=== PATIENT | female | born 1935 | race Caucasian/White ===

== ENCOUNTER 2018-06-27 10:05 | Outpatient (CLI) | payer MEDICARE | END 2018-06-27 10:06 | disposition home or self-care (01) | LOC: EMS 10:05 | PROVIDERS: ATTEND Surgery | DX: R41.82 Altered mental status, unspecified (principal); R32 Unspecified urinary incontinence | CPT/HCPCS: A0425; A0429 ==

== ENCOUNTER 2018-06-27 10:39 | Inpatient (IN) | payer MEDICARE ==
[2018-06-27 11:18] LABS: BASOPHILS % (AUTO) 0.2 %; HGB - HEMOGLOBIN 11.9 g/dL (12.0-16.0); LYMPHOCYTES % (AUTO) 10.2 %; MEAN CORPUSCULAR HEMOGLOBIN 32.5 pg (27.0-31.0); MEAN CORPUSCULAR HGB CONC 34.2 g/dL (32.0-36.0); MEAN CORPUSCULAR VOLUME 95.1 fL (81.0-99.0); MEAN PLATELET VOLUME 10.4 fL (7.9-10.8); MONOCYTES % (AUTO) 2.9 %; NEUTROPHILS % (AUTO) 86.7 %; PLT - PLATELET COUNT 116 10^3/uL (130-450); RED BLOOD COUNT 3.66 10^6/uL (4.20-5.40); RED CELL DISTRIBUTION WIDTH 14.7 % (12.0-15.0); WHITE BLOOD COUNT 23.7 x10^3/uL (4.8-10.8)
[2018-06-27 11:20] LABS: GLUCOSE, URINE (UA) NEGATIVE (NEGATIVE); KETONES,URINE (UA) TRACE mg/dL (NEGATIVE); LEUKOCYTE ESTERASE, URINE LARGE (NEGATIVE); NITRITE,URINE NEGATIVE (NEGATIVE); OCCULT BLOOD,URINE LARGE (NEGATIVE); PH,URINE 5.5 PH (5.0-7.5); PROTEIN,URINE >=300 mg/dL (NEGATIVE); UROBILINOGEN,URINE 0.2 (NORMAL) E.U./dL (NORMAL)
--- NOTE | 2018-06-27 11:25 | XRAY Report ---
Reason: ams Procedure Date: 06/27/2018 Accession Number: [id number] / [id number] Procedure: XR - Chest 1 View X-Ray CPT Code: 47317 FULL RESULT: EXAM: CHEST RADIOGRAPHY EXAM DATE: 06/27/2018 11:21 AM. CLINICAL HISTORY: AMS. COMPARISON: None. TECHNIQUE: 1 view. FINDINGS: Lungs/Pleura: Increased interstitial pulmonary markings and hazy opacity at the right lung base most suggestive of mild interstitial pulmonary edema possibly with trace pleural effusion which is not directly visualized. No lobar consolidation and no pneumothorax. Mediastinum: Cardiomegaly and calcified aortic arch. Other: None. IMPRESSION: Cardiomegaly with possibly mild interstitial edema. No pneumonia. RADIA
[2018-06-27 11:26] LABS: CLARITY,URINE CLOUDY (CLEAR)
[2018-06-27 11:27] LABS: BACTERIA,URINE Moderate /HPF (None Seen); BILIRUBIN,URINE NEGATIVE (NEGATIVE); ICTOTEST,URINE NEGATIVE; SQUAMOUS EPITHELIAL CELL,UR RARE Squamous (<= Few)
--- NOTE | 2018-06-27 11:29 | ED Physician Documentation ---
PD HPI ALTERED MENTAL STATUS - Stated complaint Stated Complaint: AMS - Chief complaint Chief Complaint: Neuro - History obtained from History obtained from: Patient, Family, EMS - History of Present Illness Timing - onset: How many days ago (2-3) Timing - duration: Days (She has had 2-3 days of decreasing mentation and interaction, not wanting to eat or drink, and seemed low-grade fever of about 99. She had an episode of vomiting a couple of days ago. No diarrhea. She has not had any cough. She had worsening mentation today and was brought in by EMS.) Timing - details: Gradual onset, Still present Quality / character: Less responsive, Confused. No: Agitated, Hallucinating Associated symptoms: Fever, General weakness. No: Headache, Dyspnea, Cough, Focal weakness Contributing factors: Anticoagulated. No: New medication, Recent illness, Recent injury Basline status: Alert and oriented X 3, Walker Similar symptoms before: Has not had sx before Recently seen: Not recently seen Review of Systems Constitutional: reports: Fever Nose: denies: Rhinorrhea / runny nose, Congestion Throat: denies: Sore throat Cardiac: denies: Chest pain / pressure, Palpitations, Pedal edema, Calf pain Respiratory: reports: Dyspnea. denies: Cough, Wheezing GI: reports: Nausea, Vomiting. denies: Abdominal Pain, Constipation, Diarrhea : reports: Incontinent Skin: denies: Rash Neurologic: reports: Generalized weakness. denies: Focal weakness, Numbness Psychiatric: denies: Depressed Endocrine: denies: Weight loss Immunocompromised: denies: Immunocompromised PD PAST MEDICAL HISTORY - Past Medical History Cardiovascular: Hypertension, High cholesterol, Atrial fibrillation - Past Surgical History Past Surgical History: Yes Ortho: Hip replacement - Present Medications Home Medications: Ambulatory Orders Medication Instructions Recorded Confirmed Atorvastatin Calcium 40 mg PO DAILY 06/27/18 06/27/18 Diltiazem HCl [Diltiazem ER] 180 mg PO DAILY 06/27/18 06/27/18 Losartan [Cozaar] 50 mg PO DAILY 06/27/18 06/27/18 Metoprolol Tartrate 100 mg PO BID 06/27/18 06/27/18 Triamterene/Hydrochlorothiazid 0.5 tab PO DAILY 06/27/18 06/27/18 [Triamterene-Hctz 75-50 mg Tab] Warfarin [Coumadin] 2 mg PO DAILY 06/27/18 06/27/18 - Allergies Allergies/Adverse Reactions: Allergies Allergy/AdvReac Type Severity Reaction Status Date / Time No Known Drug Allergies Allergy Verified 06/27/18 10:48 - Social History Does the pt smoke?: No Smoking Status: Never smoker Does the pt drink ETOH?: Yes Does the pt have substance abuse?: No - Immunizations Immunizations are current?: Yes PD ED PE NORMAL - Vitals Vital signs reviewed: Yes - General General: Alert and oriented X 3, No acute distress, Well developed/nourished - HEENT HEENT: Pharynx benign - Neck Neck: Supple, no meningeal sign, No adenopathy - Cardiac Cardiac: No: RRR (irregular and slightly tachy. ) - Respiratory Respiratory: Clear bilaterally - Abdomen Abdomen: Normal bowel sounds, Soft, Non tender, Non distended - Back Back: No CVA TTP - Derm Derm: Normal color, Warm and dry - Extremities Extremities: No deformity, No tenderness to palpate, Normal ROM s pain, No edema - Neuro Neuro: No motor deficit, No sensory deficit. No: Alert and oriented X 3 (diminished mentation but does answer simply to questions. ) Eye Opening: To Voice Motor: Obeys Commands Verbal: Confused GCS Score: 13 Results - Vitals Vitals: Vital Signs - 24 hr 06/27/18 06/27/18 06/27/18 10:46 11:18 12:09 Temperature 36.2 C L Heart Rate 105 H 105 H 108 H Respiratory 30 H 27 H 20 Rate Blood Pressure 130/118 H 96/48 L 87/65 L O2 Saturation 99 99 96 06/27/18 06/27/18 06/27/18 12:53 12:58 13:00 Temperature Heart Rate 126 H 109 H Respiratory 20 20 Rate Blood Pressure 104/54 L O2 Saturation 96 96 06/27/18 13:43 Temperature 36.6 C Heart Rate 114 H Respiratory 22 Rate Blood Pressure 144/109 H O2 Saturation 96 Oxygen O2 Source Room air - Labs Labs: Laboratory Tests 06/27/18 06/27/18 06/27/18 10:00 10:58 11:10 WBC 23.7 H RBC 3.66 L Hgb 11.9 L Hct 34.8 L MCV 95.1 MCH 32.5 H MCHC 34.2 RDW 14.7 Plt Count 116 L MPV 10.4 Neut # (Auto) Not Reportable Lymph # (Auto) Not Reportable [place] # (Auto) Not Reportable Eos # (Auto) Not Reportable Baso # (Auto) Not Reportable Absolute Nucleated RBC Not Reportable Total Counted 100 Band Neuts % (Manual) 8 Abnorm Lymph % (Manual) 0 Metamyelocytes % 2 H Nucleated RBC % Not Reportable Neutrophils # (Manual) 18.7 H Lymphocytes # (Manual) 2.8 Monocytes # (Manual) 1.4 H Eosinophils # (Manual) 0.0 Basophils # (Manual) 0.2 H Differential Comment MANUAL DIFFERENTIAL Manual Slide Review Indicated Platelet Estimate DECREASED (<130,000) Platelet Morphology NORMAL APPEARANCE RBC Morph Micro Appear NORMAL APPEARANCE PT 40.2 H INR 3.6 H Sodium Potassium Chloride Carbon Dioxide Anion Gap BUN Creatinine Estimated GFR (MDRD) Glucose Lactic Acid Calcium Magnesium 1.6 L Total Bilirubin AST ALT Alkaline Phosphatase Troponin I Total Protein Albumin Globulin Albumin/Globulin Ratio Lipase Urine Color Urine Clarity Urine pH Ur Specific [place] Urine Protein Urine Glucose (UA) Urine Ketones Urine Occult Blood Urine Nitrite Urine Bilirubin Urine Urobilinogen Ur Leukocyte Esterase Urine RBC Urine WBC Ur Squamous Epith Cells Urine Bacteria Ur Microscopic Review Urine Culture Comments Influenza A (Rapid) Influenza B (Rapid) 06/27/18 06/27/18 06/27/18 11:10 11:10 11:10 WBC RBC Hgb Hct MCV MCH MCHC RDW Plt Count MPV Neut # (Auto) Lymph # (Auto) [place] # (Auto) Eos # (Auto) Baso # (Auto) Absolute Nucleated RBC Total Counted Band Neuts % (Manual) Abnorm Lymph % (Manual) Metamyelocytes % Nucleated RBC % Neutrophils # (Manual) Lymphocytes # (Manual) Monocytes # (Manual) Eosinophils # (Manual) Basophils # (Manual) Differential Comment Manual Slide Review Platelet Estimate Platelet Morphology RBC Morph Micro Appear PT INR Sodium 138 Potassium 4.7 Chloride 105 Carbon Dioxide 19 L Anion Gap 14.0 H BUN 66 H Creatinine 5.0 H Estimated GFR (MDRD) 8 L Glucose 84 Lactic Acid Calcium 8.9 Magnesium Total Bilirubin 1.2 H AST 45 H ALT 15 Alkaline Phosphatase 58 Troponin I 0.06 Total Protein 7.3 Albumin 3.2 Globulin 4.1 Albumin/Globulin Ratio 0.8 L Lipase 19 L Urine Color DARK YELLOW Urine Clarity CLOUDY Urine pH 5.5 Ur Specific [place] >=1.030 H Urine Protein >=300 H Urine Glucose (UA) NEGATIVE Urine Ketones TRACE Urine Occult Blood LARGE H Urine Nitrite NEGATIVE Urine Bilirubin NEGATIVE Urine Urobilinogen 0.2 (NORMAL) Ur Leukocyte Esterase LARGE H Urine RBC 6-10 H Urine WBC >25 H Ur Squamous Epith Cells RARE Squamous Urine Bacteria Moderate H Ur Microscopic Review INDICATED Urine Culture Comments INDICATED Influenza A (Rapid) Influenza B (Rapid) 06/27/18 06/27/18 11:50 12:56 WBC RBC Hgb Hct MCV MCH MCHC RDW Plt Count MPV Neut # (Auto) Lymph # (Auto) [place] # (Auto) Eos # (Auto) Baso # (Auto) Absolute Nucleated RBC Total Counted Band Neuts % (Manual) Abnorm Lymph % (Manual) Metamyelocytes % Nucleated RBC % Neutrophils # (Manual) Lymphocytes # (Manual) Monocytes # (Manual) Eosinophils # (Manual) Basophils # (Manual) Differential Comment Manual Slide Review Platelet Estimate Platelet Morphology RBC Morph Micro Appear PT INR Sodium Potassium Chloride Carbon Dioxide Anion Gap BUN Creatinine Estimated GFR (MDRD) Glucose Lactic Acid 4.4 H* Calcium Magnesium Total Bilirubin AST ALT Alkaline Phosphatase Troponin I Total Protein Albumin Globulin Albumin/Globulin Ratio Lipase Urine Color Urine Clarity Urine pH Ur Specific [place] Urine Protein Urine Glucose (UA) Urine Ketones Urine Occult Blood Urine Nitrite Urine Bilirubin Urine Urobilinogen Ur Leukocyte Esterase Urine RBC Urine WBC Ur Squamous Epith Cells Urine Bacteria Ur Microscopic Review Urine Culture Comments Influenza A (Rapid) Negative Influenza B (Rapid) Negative Departure - Departure Disposition: 66 [facility] DC/Xfer Clinical Impression: Acute renal insufficiency Hypotension Qualifiers: Hypotension type: unspecified hypotension type Qualified Code(s): I95.9 - Hypotension, unspecified UTI (urinary tract infection) Qualifiers: Urinary tract infection type: acute pyelonephritis Qualified Code(s): N10 - Acute pyelonephritis Sepsis Qualifiers: Sepsis type: sepsis due to unspecified organism Qualified Code(s): A41.9 - Sepsis, unspecified organism Condition: Stable Record reviewed to determine appropriate education?: Yes
[2018-06-27 11:33] LABS: ALBUMIN 3.2 g/dL (3.2-5.5); ALBUMIN/GLOBULIN RATIO 0.8 (1.0-2.2); BILIRUBIN,TOTAL 1.2 mg/dL (0.2-1.0); CALCIUM 8.9 mg/dL (8.5-10.3); TOTAL PROTEIN 7.3 g/dL (6.7-8.2)
[2018-06-27] MEDS ORDERED: SODIUM CHLORIDE 0.9% 1,000 ML IV ONE ×3 (11:48→13:47)
[2018-06-27] MEDS ORDERED: ONDANSETRON 4 MG/2 ML VIAL IVP STA (11:48)
[2018-06-27] MEDS ORDERED: CEFEPIME 2 GM in SODIUM CHLORIDE 0.9% MINIBAG 100 ML IV STA (11:49)
[2018-06-27] MEDS ORDERED: metroNIDAZOLE 500 MG/100 ML 500 MG/100 ML BAG IV STA (11:49)
[2018-06-27] MEDS ORDERED: VANCOMYCIN INJ 1.25 GM in SODIUM CHLORIDE 0.9% 250 ML IV STA (11:49)
[2018-06-27 11:51] LABS: ABNORMAL LYMPHS % (MANUAL) 0 %; BAND NEUTROPHILS % (MANUAL) 8 %; BASOPHILS # (MANUAL) 0.2 10^3/uL (0-0.1); BASOPHILS % (MANUAL) 1 %; DIFFERENTIAL COMMENT MANUAL DIFFERENTIAL; LYMPHOCYTES # (MANUAL) 2.8 10^3/uL (1.5-3.5); LYMPHOCYTES % (MANUAL) 12 %; METAMYELOCYTES % (MANUAL) 2 %; MONOCYTES # (MANUAL) 1.4 10^3/uL (0.0-1.0); NEUTROPHILS # (MANUAL) 18.7 10^3/uL (1.5-6.6); NEUTROPHILS % (MANUAL) 71 %; PLATELET ESTIMATE, MANUAL DECREASED (<130,000) (NORMAL); PLATELET MORPHOLOGY NORMAL APPEARANCE (NORMAL); RBC MORPHOLOGY (MULTIPLE) NORMAL APPEARANCE (NORMAL)
[2018-06-27 12:06] LABS: INR 3.6 (0.8-1.2); PT - PROTHROMBIN TIME 40.2 secs (9.9-12.6)
--- NOTE | 2018-06-27 12:53 | CT Report ---
Reason: confusion, on coumadin Procedure Date: 06/27/2018 Accession Number: [id number] / [id number] Procedure: CT - Head W/O CPT Code: FULL RESULT: EXAM: CT HEAD EXAM DATE: 06/27/2018 12:08 PM. CLINICAL HISTORY: Confusion, on coumadin. COMPARISON: None. TECHNIQUE: Multiaxial CT images were obtained from the foramen magnum to the vertex. Reformats: Sagittal and coronal. IV contrast: None. In accordance with CT protocol optimization, one or more of the following dose reduction techniques were utilized for this exam: automated exposure control, adjustment of mA and/or KV based on patient size, or use of iterative reconstructive technique. FINDINGS: Parenchyma: No intraparenchymal hemorrhage. No evidence of mass, midline shift. Mccrary-white differentiation is distinct. Extraaxial Spaces: Normal for age. No subdural or epidural collections identified. Ventricles: Normal in size and position. Sinuses and Orbits: Imaged paranasal sinuses, orbits, and mastoids show no significant abnormality. Bones: No evidence of fracture or calvarial defect. Other: None. IMPRESSION: Normal head CT. RADIA
[2018-06-27] MEDS ORDERED: IBUPROFEN 400 MG TABLET PO PRN (13:56)
[2018-06-27] MEDS ORDERED: SODIUM CHLORIDE FLUSH 0.9% 10 ML SYRINGE IVP PRN (13:56)
[2018-06-27] MEDS ORDERED: oxyCODONE 5 MG TABLET PO PRN (13:56)
[2018-06-27] MEDS ORDERED: ONDANSETRON ODT 4 MG TABLET TL PRN (13:56)
[2018-06-27] MEDS ORDERED: ONDANSETRON 4 MG/2 ML VIAL IVP PRN (13:56)
[2018-06-27] MEDS ORDERED: ACETAMINOPHEN 325 MG TABLET PO PRN (13:56)
[2018-06-27] MEDS ORDERED: SODIUM CHLORIDE 0.9% 1,000 ML IV SCH (14:00)
[2018-06-27] MEDS ORDERED: cefTRIAXone 1 GM in SODIUM CHLORIDE 0.9% MINIBAG 100 ML IV SCH (15:00)
[2018-06-27] MEDS ORDERED: SODIUM CHLORIDE 0.9% 500 ML IV ONE (15:49)
[2018-06-27] MEDS ORDERED: GENTAMICIN 80MG VIAL 320 MG in SODIUM CHLORIDE 0.9% 100ML 100 ML IV SCH (16:00)
[2018-06-27] MEDS ORDERED: ACETAMINOPHEN 650 MG SUPP PR PRN (16:09)
--- NOTE | 2018-06-27 16:09 | HISTORY & PHYSICAL EXAMINATION ---
Chief Complaint - Chief Complaint Chief Complaint: AMS History of Present Illness - History of Present Illness HPI Comment/Other: Ms. Herron is a 83-yrs-old female with a past medical history significant for Hypertension, High cholesterol, Atrial fibrillation with Coumadin, who present ER for complain of altered mental status. Pt is alert but confused and could not answer questions. Pt's daughter is at the bedside to help answer questions. She is living with her mother together at [place]. Pt's daughter state pt did not see any medical provider for at least one year. pt suddenly altered her mental status from yesterday morning, before pt is alert and oriented. Pt's daughter state pt went to bathroom yesterday morning then she did not have urination or bowel movement, also pt did not eat or drink since that. Pt's daughter did not know pt had any kidney problem before. Pt's daughter also report pt had 101 fever at home. Lab test reveals pt had elevated WBC 23.7, BUN 66, Creatinine 5, Lactic acid 4.4, PT/INR 40.2/3.6. UA reveals pt has UTI CXR reveals cardiomegaly with possibly mild interstitial edema. CT of head reveals normal head CT. Initially pt is afebrile, tachycardia HR 105, hypotension 96/48, then pt was found to have low degree fever at 38 degree. As pt's presentations, pt was admitted as inpt for further evaluation and treatment. History - Past Medical History Cardiovascular: reports: Hypertension, High cholesterol, Atrial fibrillation - Past Surgical History Ortho: reports: Hip replacement - Family & Social History Family History: Mother: , Cancer, Father: , CAD, CVA/TIA Family History Comment/Other: pt's daughter report pt is living with her mother in [place]. pt had 7 children. Pt had two brothers both had DM2, pt's one sister at 82 yrs from [place], pt's another sister at 82 yrs from [place]. - POLST POLST Status: Full Code Meds/Allgy - Home Medications Home Medications: Ambulatory Orders Medication Instructions Recorded Confirmed Atorvastatin Calcium 40 mg PO DAILY 06/27/18 06/27/18 Diltiazem HCl [Diltiazem ER] 180 mg PO DAILY 06/27/18 06/27/18 Losartan [Cozaar] 50 mg PO DAILY 06/27/18 06/27/18 Metoprolol Tartrate 100 mg PO BID 06/27/18 06/27/18 Triamterene/Hydrochlorothiazid 0.5 tab PO DAILY 06/27/18 06/27/18 [Triamterene-Hctz 75-50 mg Tab] Warfarin [Coumadin] 2 mg PO DAILY 06/27/18 06/27/18 - Allergies Allergies/Adverse Reactions: Allergies Allergy/AdvReac Type Severity Reaction Status Date / Time No Known Drug Allergies Allergy Verified 06/27/18 10:48 Review of Systems - Constitutional Constitutional: reports: Fever, Poor appetite - Eyes Eyes: denies: Pain, Blurred vision, Field loss, Vision loss - Ears, Nose & Throat Ears, Nose & Throat: denies: Ear pain, Nosebleeds, Bleeding gums - Cardiovascular Cariovascular: denies: Irregular heart rate, Palpitations, Chest pain, Edema, Lightheadedness, Syncope, Exertional dyspnea, Decr. exercise tolerance - Respiratory Respiratory: denies: Cough, Sputum production, Wheezing, Snoring, Hemoptysis, Orthopnea, SOB at rest, SOB with exertion - Gastrointestinal Gastrointestinal: denies: Abdominal pain, Abdominal distention, Diarrhea, Rectal bleeding, Black stools, Nausea, Vomiting, Khang blood emesis, Coffee grounds emesis - Genitourinary Genitourinary: denies: Dysuria, Urgency, Hematuria, Incontinence, Flank pain, Nocturia - Musculoskeletal Musculoskeletal: denies: Muscle pain, Muscle aches, Stiffness, Limited range of motion, Muscle weakness - Integumentary Integumentary: denies: Rash, Pruritis, Lesions, Dryness, Lumps - Neurological Neurological: denies: Focal weakness, Dizziness, Numbness, Memory problems, Seizures, Incoordination, Slurred speech - Psychiatric Psychiatric: denies: Suicidal, Delusions, Hallucinations, Homicidal - Endocrine Endocrine: denies: Polyuria, Polydypsia, Polyphagia - Hematologic/Lymphatic Hematologic/Lymphatic: denies: Bruising, Petechiae, Bleeding tendencies Prior Level of Functionality: per pt's daughter report pt is independent at home Exam - Vital Signs Reviewed Vital Signs: Yes Vital Signs: Vital Signs x48h Temp Pulse Pulse Resp BP BP Pulse Ox 06/27/18 15:46 38.9 C H 105 H 24 84/58 L 97 06/27/18 14:37 38.0 C H 107 H 18 103/59 L 97 06/27/18 14:11 109 H 20 106/54 L 96 06/27/18 13:43 36.6 C 114 H 22 144/109 H 96 06/27/18 13:00 109 H 20 96 06/27/18 12:58 104/54 L 06/27/18 12:53 126 H 20 96 06/27/18 12:09 108 H 20 87/65 L 96 06/27/18 11:18 105 H 27 H 96/48 L 99 06/27/18 10:46 36.2 C L 105 H 30 H 130/118 H 99 - Physical Exam General Appearance: positive: Alert, Mild distress. negative: Lethargic Eyes Bilateral: positive: Normal inspection, PERRL, No lid inflammation, Conjunctivae nml ENT: positive: ENT inspection nml, Pharynx nml, No signs of dehydration. negative: Purulent nasal drainage, Pharyngeal erythema, Oral lesions Neck: positive: Nml inspection, Thyroid nml, No JVD, Trachea midline. negative: Thyromegaly, Lymphadenopathy (R), Lymphadenopathy (L), Stiff neck, Swelling/bruising, Tracheal deviation Respiratory: positive: Chest non-tender, No respiratory distress, Breath sounds nml. negative: Wheezes, Rales Cardiovascular: positive: No murmur, No gallop, Tachycardia. negative: Irregularly irregular, Extrasystoles, Bradycardia, Systolic murmur, Diastolic murmur Peripheral Pulses: positive: 2+ Abdomen: positive: Non-tender, No organomegaly, Nml bowel sounds, No distention. negative: Tenderness, Guarding, Rebound Back: positive: Nml inspection. negative: CVA tenderness (R), CVA tenderness (L) Skin: positive: No rash, Warm, Dry, Pallor. negative: Skin rash Extremities: positive: Non-tender, Nml appearance. negative: Calf tenderness, Joint swelling, Nathanael's sign/cords Neurologic/Psychiatric: negative: Weakness, Sensory loss, Facial droop, Slurred/abnml speech, Depressed mood/affect Sepsis Event Note (H) - Evaluation Current Stage of Sepsis: Severe sepsis Possible source of Sepsis: positive: Genitourinary - Sepsis Criteria Sepsis Criteria: Recorded Temperature greater than 38.3C or Less than 36C, Recorded Heart Rate greater than 90 bpm, Recorded Respiratory Rate greater than 20, WBC count greater than 12,000 or less than 4000, [employer]: altered consciousness (unrelated to primary neuro pathology), SBP less than 90 mmHg, Renal: urine output less than 0.5ml/kg/hr for 2 hours or creatinine gr, Metabolic: lactate > 2 mmol/L Conclusion/Plan - Problem List (1) Altered mental status Conclusion/Plan: per pt's daughter report pt had AMS from yesterday morning. Unknown exact etiology. pt may present metabolic encephalopathy. pt has UTI and acute renal failure, and lactic acidosis. treat underline medical problem, antibiotics for UTI, IVF of NS neur check tele and vital monitor I discussed with pt's daughter at pt's bedside about pt's severe medical conditions including AMS, acute kidney failure, sepsis, hypotension, lactic acidosis, afib with RVR, plus pt's age, which could deteriorate at any time and even . Pt's daughter state she understand and will notify all her brothers and sisters mother's medical conditions. She state she will come back to talk with me and may change pt's code status, now she request full code for pt. I also discussed with the daughter, pt may also be transferred to other hospital for high level of care, she agree. (2) Sepsis Conclusion/Plan: pt present fever, hypotension, tachycardia, significant elevated WBC, UA reveals UTI. tele and vital Q30 min antibiotics Rocephin and cefepime given at ER, will continue antibiotics IVF of NS blood culture, will followup UA culture, will followup Qualifiers: Sepsis type: sepsis due to unspecified organism Qualified Code(s): A41.9 - Sepsis, unspecified organism (3) Acute renal failure Conclusion/Plan: pt's lab test reveals BUN 66 and Creatinine 5. pt's daughter report as she is unknown pt have hx of CKD. pt did not have urine since yesterday per her daughter reports. Pt did not eat and drink since from yesterday morning per her daughter report. It can be caused by dehydration plus under chronic renal issue hydration with IVF of NS check CK recheck CMP and electrolytic, if worsen and pt continue aurine in hospital setting, then will call nephologist for consult and may transfer to other hospital for high level of care, and have acute dialysis. Discussed with pt's daughter for the care plan, she agreed. (4) Hypotension Conclusion/Plan: pt present fever, UTI, hypotension, and complicated with acute renal failure. clinically pt present Sepsis 500ml bolus IVF of NS, and maintain IVF of NS at 100cc/h for less 3 L, precaution of fluid overload, and constantly check respiratory status hold pt's all BP meds now tele and vital check Qualifiers: Hypotension type: unspecified hypotension type Qualified Code(s): I95.9 - H ypotension, unspecified (5) UTI (urinary tract infection) Conclusion/Plan: treated with antibiotics, pt present sepsis will follow UA culture Qualifiers: Urinary tract infection type: acute pyelonephritis Qualified Code(s): N10 - Acute pyelonephritis (6) Lactic acid acidosis Conclusion/Plan: pt present sepsis and acute renal failure IVF of NS serial check lactic acid level (7) Afib Conclusion/Plan: pt present afib with RVR and slight elevated HR. INR is 3.6. because pt has hypotension. hold metoprolol and will consider reconcile of home meds of cardizem as BP is stable closely monitor with tele and vital hold Coumadin now since INR is 3.6, pt has acute renal failure recheck PT/INR daily (8) Full code status Conclusion/Plan: pt's daughter request full code now since pt is confused and pt did not have PLOST or other advance directive - Lab Results Fish Bones: 06/27/18 11:10 06/27/18 16:32 Core Measures - Anticipated LOS I expect patient to be DC'd or transferred within 96 hours.: Yes - DVT/VTE - Prophylaxis VTE/DVT Device ordered at admit?: Yes VTE/DVT Prophylaxis med ordered at admit?: Yes
[2018-06-27] MEDS ORDERED: MAGNESIUM SULFATE 1 GM in SODIUM CHLORIDE 0.9% 50 ML IV ONE ×2 (16:37→17:30)
[2018-06-27 16:50] LABS: ALBUMIN 2.9 g/dL (3.2-5.5); ALBUMIN/GLOBULIN RATIO 0.8 (1.0-2.2); CREATININE 5.2 mg/dL (0.4-1.0); TOTAL PROTEIN 6.6 g/dL (6.7-8.2)
[2018-06-27] MEDS ORDERED: SODIUM CHLORIDE FLUSH 0.9% 10 ML SYRINGE IVP SCH (17:00)
--- NOTE | 2018-06-27 18:24 | Ultrasound Report ---
Reason: kidney failure Procedure Date: 06/27/2018 Accession Number: [id number] / [id number] Procedure: US - Retroperitoneal CPT Code: FULL RESULT: EXAM: RENAL ULTRASOUND EXAM DATE: 06/27/2018 05:17 PM. CLINICAL HISTORY: Kidney failure. COMPARISON: None. TECHNIQUE: Real-time scanning was performed with static images obtained. FINDINGS: Right Kidney: 8.8 x 5.6 x 5.2 cm. There is moderate hydronephrosis. No shadowing stones. No contour deforming mass. Left Kidney: 9.4 x 4.0 x 4.2 cm. Normal echotexture with no stones, contour-deforming masses, or hydronephrosis. Bladder: Bladder catheter is in place. Other: None. IMPRESSION: 1. There is moderate right hydronephrosis. 2. The left kidney demonstrates no acute abnormalities. 3. Bladder catheter is in place. RADIA
[2018-06-27 19:49] VITALS: BP 97/60
[2018-06-27] MEDS ORDERED: CEFEPIME 1 GM in SODIUM CHLORIDE 0.9% MINIBAG 100 ML IV SCH (22:00)
--- NOTE | 2018-06-28 08:06 | DISCHARGE SUMMARY ---
Discharge Summary Discharge Date: 06/27/18 Discharging Provider: PIMENTEL Condition at Discharge: Stable Discharge Disposition: 02 Transfer Acute Care [facility]osp [facility] - DIAGNOSES Admission Diagnoses: (1) Altered mental status (2) Sepsis (3) Acute renal failure (4) Hypotension (5) UTI (urinary tract infection) (6) Lactic acid acidosis (7) Afib Discharge Diagnoses with Status of Each Condition: (1) Altered mental status improved. pt smiled and talked with her family at bedside transfer to [facility] for continuing care (2) Sepsis slight improved, no fever, and BP is slight better. transfer to [facility] for high level of care (3) Acute renal failure worsening, creatinine increase, and hyperkalemia. pt had 75 ml urine in I&O US of retroperitoneal reveals moderate right hydronephrosis, otherwise unremarkable called [facility] asphalt worker, and asphalt worker accepted pt for high level of care (4) Hypotension slight improved transfer to [facility] for high level of care (5) UTI (urinary tract infection) treated with antibiotics, and UA culture pending. transfer to [facility] for continuing care (6) Lactic acid acidosis slight improved and reduced to 3.8 from 4.4 of lactic acid level transfer to [facility] for high level of care (7) Afib with RVR transfer to [facility] for high level of care - HPI History of Present Illness: Ms. Herron is a 83-yrs-old female with a past medical history significant for Hypertension, High cholesterol, Atrial fibrillation with Coumadin, who present ER for complain of altered mental status. Pt is alert but confused and could not answer questions. Pt's daughter is at the bedside to help answer questions. She is living with her mother together at [facility]. Pt's daughter state pt did not see any medical provider for at least one year. pt suddenly altered her mental status from yesterday morning, before pt is alert and oriented. Pt's daughter state pt went to bathroom yesterday morning then she did not have urination or bowel movement, also pt did not eat or drink since that. Pt's daughter did not know pt had any kidney problem before. Pt's daughter also report pt had 101 fever at home. Lab test reveals pt had elevated WBC 23.7, BUN 66, Creatinine 5, Lactic acid 4.4, PT/INR 40.2/3.6. UA reveals pt has UTI CXR reveals cardiomegaly with possibly mild interstitial edema. CT of head reveals normal head CT. Initially pt is afebrile, tachycardia HR 105, hypotension 96/48, then pt was found to have low degree fever at 38 degree. As pt's presentations, pt was admitted as inpt for further evaluation and treatment. - HOSPITAL COURSE Hospital Course: pt was admitted for AMS. Then pt was found to have acute renal failure, aurine at home, and sepsis with hypotension and fever and significant elevated WBC, elevated lactic acid, and afib with RVR. discussed with pt's daughter at pt's bedside about pt's severe medical conditions including AMS, acute kidney failure, sepsis, hypotension, lactic acidosis, afib with RVR, plus pt's age, which could deteriorate at any time and even . Pt's daughter state she understand and will notify all her brothers and sisters mother's medical conditions. She state she will come back to talk with me and may change pt's code status, now she request full code for pt. I also discussed with the daughter, pt may also be transferred to other hospital for high level of care, she agree. Pt's renal condition continue worsen, increase creatinine and hyperkalemia. Call to high level care to [facility] was made. [facility] asphalt worker and hospitalist accepted pt. Pt was transferred to [facility] for high level care. - ALLERGIES Allergies/Adverse Reactions: Allergies Allergy/AdvReac Type Severity Reaction Status Date / Time No Known Drug Allergies Allergy Verified 06/27/18 10:48 - MEDICATIONS Home Medications: Ambulatory Orders Medication Instructions Recorded Confirmed Atorvastatin Calcium 40 mg PO DAILY 06/27/18 06/27/18 Diltiazem HCl [Diltiazem ER] 180 mg PO DAILY 06/27/18 06/27/18 Losartan [Cozaar] 50 mg PO DAILY 06/27/18 06/27/18 Metoprolol Tartrate 100 mg PO BID 06/27/18 06/27/18 Triamterene/Hydrochlorothiazid 0.5 tab PO DAILY 06/27/18 06/27/18 [Triamterene-Hctz 75-50 mg Tab] Warfarin [Coumadin] 2 mg PO DAILY 06/27/18 06/27/18 - PHYSICAL EXAM AT DISCHARGE General Appearance: positive: No acute distress, Alert. negative: Lethargic Eyes Bilateral: positive: Normal inspection, PERRL, No lid inflammation, Co njunctivae nml ENT: positive: ENT inspection nml, Pharynx nml, No signs of dehydration. negative: Purulent nasal drainage, Pharyngeal erythema, Oral lesions Neck: positive: Nml inspection, Thyroid nml, No JVD, Trachea midline. negative: Thyromegaly, Lymphadenopathy (R), Lymphadenopathy (L), Stiff neck, Swelling/bruising, Tracheal deviation Respiratory: positive: Chest non-tender, No respiratory distress, Breath sounds nml. negative: Wheezes, Rales, Rhonchi Cardiovascular: positive: No murmur, No gallop, Tachycardia. negative: Irregularly irregular, Extrasystoles, Bradycardia, JVD present, Systolic murmur, Diastolic murmur Peripheral Pulses: positive: 2+ Abdomen: positive: Non-tender, No organomegaly, Nml bowel sounds, No distention. negative: Tenderness, Guarding, Rebound Back: positive: Nml inspection. negative: CVA tenderness (R), CVA tenderness (L) Skin: positive: Color nml, No rash, Warm, Dry. negative: Cyanosis, Diaphoresis, Pallor Extremities: positive: Non-tender, Full ROM, Nml appearance. negative: Calf tenderness, Joint swelling, Nathanael's sign/cords Neurologic/Psychiatric: positive: Sensation nml. negative: Weakness, Sensory loss, Facial droop, Slurred/abnml speech, Depressed mood/affect - LABS Result Diagrams: 06/27/18 11:10 06/27/18 16:32 - SEPSIS Current Stage of Sepsis: Severe sepsis Possible source of Sepsis: Genitourinary Sepsis Criteria: Recorded Temperature greater than 38.3C or Less than 36C, Recorded Heart Rate greater than 90 bpm, Recorded Respiratory Rate greater than 20, WBC count greater than 12,000 or less than 4000, CHEMISTRY ASSOCIATE: altered consciousness (unrelated to primary neuro pathology), SBP less than 90 mmHg, Renal: urine output less than 0.5ml/kg/hr for 2 hours or creatinine gr, Metabolic: lactate > 2 mmol/L - FOLLOW UP Follow Up: transfer to [facility] for high level of care - TIME SPENT Time Spent in Discharge (Minutes): 75
[2018-06-28] MEDS ORDERED: cefTRIAXone 2 GM in SODIUM CHLORIDE 0.9% MINIBAG 100 ML IV SCH (09:00)
[2018-06-28] MEDS ORDERED: POLYETHYLENE GLYCOL 3350 17 GM PACKET PO SCH (09:00)
== END 2018-06-27 21:20 | disposition short-term general hospital (02) | DRG 872 ==
LOC: EDUNIT# → ED 10:39 → MS2 13:56
PROVIDERS: ADMIT Specialist; ATTEND Specialist
DX: A41.9 Sepsis, unspecified organism (principal); N17.9 Acute kidney failure, unspecified; R32 Unspecified urinary incontinence; N10 Acute pyelonephritis; E87.2 Acidosis; N13.30 Unspecified hydronephrosis; R41.82 Altered mental status, unspecified; N28.9 Disorder of kidney and ureter, unspecified; I95.9 Hypotension, unspecified; I48.91 Unspecified atrial fibrillation; I10 Essential (primary) hypertension; E78.00 Pure hypercholesterolemia, unspecified; Z79.02 Long term (current) use of antithrombotics/antiplatelets; E87.5 Hyperkalemia; Z66 Do not resuscitate; Z96.649 Presence of unspecified artificial hip joint
CPT/HCPCS: 36415; 70450; 71045; 76770; 80053; 81001; 81003; 82550; 82553; 83605; 83690; 83735; 84484; 85025; 85610; 87040; 87077; 87086; 87181; 87275; 87276; 93005; 96365; 96375; 99284; 99285